=== PATIENT | male | born 1935 | race African-American/Black ===

== ENCOUNTER 2021-10-03 14:32 | Emergency (ER) | payer OTHER ==
[~2021-10-03] VITALS: Ht 172.7 cm; Wt 72.6 kg
--- NOTE | ~2021-10-03 | EMS ---
[address] [address] EMS Patient Care Report Name: RAYMON COOPER Room #: DEP AXEL Brownlee#: [id number] Admission: 10/03/21 Attend Phys: Discharge: 10/03/21 Date of : 35 Report #: [id number] THIS REPORT FOR: //name// Report Transmitted: 10/04/2021 06:22 EMS Care Summary [place], [place]/[facility] Incident [id number] @ 10/03/2021 13:44 Incident Location [address] [facility] Patient RAYMON WHITE Male, 86 Years 1935 Patient Address [address] [facility] [address] [id number] Patient History Hypertension (HTN), Patient Allergies No known allergies, Patient Medications Other, Chief Complaint ALTERED MENTAL Disposition Transported No Lights/[place] Dispatch Reason EMS Special Service Transported To [facility] Narrative [facility] 503 WAS DISPATCHED TO [facility] FOR TRANSFER OF A PATIENT TO [facility] FOR GERIATRIC MENTAL HEALTH ASSESSMENT PER PHYSICIANS ORDERS. PATIENT WAS FOUND SITTING IN BED AWAITING TRANSPORT. PATIENT REPORT AND [facility] [address] [place] [address] EMS Patient Care Report Name: RAYMON COOPER Room #: DEP Torrie#: [id number] Admission: 10/03/21 Attend Phys: Discharge: 10/03/21 Date of : 35 Report #: [id number] PAPERWORK WERE RECEIVED FROM HOSPITAL STAFF. PATIENT WAS TRANSFERRED FROM BED TO STRETCHER BY STANDING, PIVOTING AND BEING SEATED THEN SECURED WITH SEAT BELTS AND GUARD RAILS. VITALS WERE TAKEN IN ROUTE WITH NO CHANGE TO PATIENT. UPON ARRIVAL TO HOSPITAL PATIENT WAS TRANSFERRED FROM STRETCHER TO BED BY STANDING, PIVOTING AND BEING SEATED THEN SECURED WITH GUARD RAILS. PATIENT REPORT, PAPERWORK AND CARE WERE TRANSFERRED TO RECEIVING STAFF. Initial Vitals @14:13P: 71,R: 12,BP: 157/85,Pain: 0/10,GCS: 15,SpO2: 95,Revised Trauma: 12, @14:26P: 72,R: 12,BP: 127/85,Pain: 0/10,GCS: 15,SpO2: 94,Revised Trauma: 12, Assessments @14:11MENTAL:No Abnormalities,SKIN:No Abnormalities,HEENT:Head/Face: No Abnormalities,Eyes: No Abnormalities,Neck/Airway: No Abnormalities,LUNG SOUNDS:General: No Abnormalities,Left Upper: No Abnormalities,Right Upper: No Abnormalities,Left Lower: No Abnormalities,Right Lower: No Abnormalities,ABDOMEN:General: No Abnormalities,Left Upper: No Abnormalities,Right Upper: No Abnormalities,Left Lower: No Abnormalities,Right Lower: No Abnormalities,PELVIS//GI:No Abnormalities,EXTREMITIES:Left Arm: No Abnormalities,Right Arm: No Abnormalities,Left Leg: No Abnormalities,Right Leg: No Abnormalities,PULSE:NEURO:No Abnormalities, Impression Altered Mental Status Procedures @14:10 BLS Assessment Response: Unchanged @14:10 Stretcher Response: Unchanged Timeline 13:40,Call Received 13:40,Dispatch Notified 13:44,Dispatched 13:45,En Route 13:58,On Scene 14:09,At Patient 14:10,BLS Assessment,Response: Unchanged 14:10,Stretcher,Response: Unchanged 14:12,Depart Scene 14:13,BP: 157/85 M,PULSE: 71,RR: 12 R,SPO2: 95 Ox,ETCO2: ,BG: ,PAIN: 0,GCS: 15, 14:26,BP: 127/85 M,PULSE: 72,RR: 12 R,SPO2: 94 Ox,ETCO2: ,BG: ,PAIN: 0,GCS: 15, 14:28,At Destination 14:33,Call Closed Disclaimer [facility] [address] [place] [address] EMS Patient Care Report Name: RAYMON COOPER Room #: DEP [facility].R.#: [id number] Admission: 10/03/21 Attend Phys: Discharge: 10/03/21 Date of : 35 Report #: [id number] v1.1 Copyright 2021 [employer] This EMS Care Summary contains data elements from the applicable legal record (which may be displayed differently). It is designed to provide pertinent information for the following purposes: continuity of care, clinical quality, and state data reporting. The complete legal record is available to ED staff and administrators of the receiving hospital in [employer] Patient Tracker. All data is provided "as is."
[2021-10-03] MEDS ORDERED: ARICEPT10 M1 PO (14:43)
[2021-10-03] MEDS ORDERED: NORVASC10 MG PO (14:44)
[2021-10-03] MEDS ORDERED: SERTRALINE HCL100 MG PO (14:44)
[2021-10-04 00:32] VITALS: BP 146/69
== END 2021-10-03 21:51 ==
LOC: ER 14:32
PROVIDERS: Emergency Medicine
DX: R45.1 Restlessness and agitation (principal); Z20.822 Contact with and (suspected) exposure to COVID-19; F32.9 Major depressive disorder, single episode, unspecified; I10 Essential (primary) hypertension; Z79.899 Other long term (current) drug therapy

== ENCOUNTER 2021-10-03 16:36 | Inpatient (IN) | payer OTHER ==
[~2021-10-03] VITALS: Ht 170.2 cm; Wt 63.5 kg
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
[~2021-10-03 16:36] MED LIST: ARICEPT10 M1 PO; NORVASC10 MG PO; SERTRALINE HCL100 MG PO
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
[2021-10-04 06:12] LABS: CHOLESTEROL 130 mg/dL (<200); HDL CHOLESTEROL 53 mg/dL (>40); LDL CHOLESTEROL 66 mg/dL (<100); TC:HDL 2.5 Ratio (Not establshd); TRIGLYCERIDE 55 mg/dL (<150); VLDL 11 mg/dL (<40)
[2021-10-04 06:40] LABS: SERUM ASSESSMENT Clear
[2021-10-04 08:39] LABS: CALCIUM 9.1 mg/dL (8.5-10.1); CREATININE 0.8 mg/dL (0.7-1.3); POTASSIUM 4.2 mmol/L (3.5-5.1)
[2021-10-04 09:46] VITALS: BP 162/68
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
[2021-10-04 19:28] VITALS: BP 131/71
--- NOTE | 2021-10-04 23:38 | NUR ---
At onset of bioinformatics programmer pt was sitting in veronica chair in day room awake. This shift pt was alert and oriented to self. Pt appears to know he is in the hospital but he stated that someone was going to come pick him up and take him home. RN oriented pt to date, place and situation. Pt quickly restated that he was going to go home, but pt was calm, pleasant and cooperative. Affect was flat. Pt's speech is loud and at times difficult to understand. Pt was compliant with medication and vital signs. Pt took pills whole with water. Pt denied depression and anxiety. Pt endorsed pain in his left knee and received tylenol with his HS medications. Pt is a high fall risk. Fall precautions in place. Will continue to monitor.
[2021-10-05 07:08] LABS: GLYCOHEMOGLOBIN (HGB A1C) 5.7 % (4.8-5.6)
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
[2021-10-05 09:01] VITALS: BP 120/71
[2021-10-05 09:02] VITALS: BP 120/71
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
--- NOTE | 2021-10-05 15:54 | NUR ---
Welcome email sent to [email or web address] and [email or web address]
[2021-10-05 19:38] VITALS: BP 119/60
[2021-10-05 19:44] VITALS: BP 119/60
--- NOTE | 2021-10-05 21:18 | NUR ---
Continued pt care during this shift into evening medication pass. Client was sitting in chair in activity area during this time. Client present fussy but cooperative during this time, and was oriented to self and situation. Client stated that he still had depression and anxiety from being unable to go home, and voiced wanting to go home. Client asked his daughter on the phone when she could pick him as as he was "tired of being in this place" during his phone call. Client was redirected during this time, and once again educated that he would have a social studies department chair to work on discharge planning with. Client voiced some understanding at this time. Client denied any hallucinations at this time, stating, "I hope not baby" and also stated that he was "never suicidal or homicidal- I don't know why you're asking." Client denied pain during this time, though client's left knee still presented swollen. Client was asked if he was tired or had any lack of energy or over abundance of energy as thyroid hormone levels were low per lab results- client stated no. Client took all medications and tolerated his medication well. Client was then taken to bed. No further concerns at this time. Dayshift information passed on in shift report to receiving nurse.
[2021-10-06 10:04] VITALS: BP 130/59
--- NOTE | 2021-10-06 11:15 | NUR ---
Alert and orientated to person and place. [place]. Asking to be brought downstairs and then go home. Denies SI/HI. Pleasant, calm and cooperative. Breath sounds clear. Reg HR auscultated. Color pink with brisk capillary refill and palpable peripheral pulses. Incontinent of large amt yellow urine. Active bowel sounds over soft, rounded abdomen. Smear of stool. Redness between buttocks, cleaned and zpaste applied. States he has L knee pain with movement. Able bear wt, 2 person assist. Currently sitting in chair without s/o distress.
--- NOTE | 2021-10-06 16:23 | NUR ---
Phone call to Andrzej regarding transition to assisted living to memory care - Voice message
[2021-10-06 19:02] VITALS: BP 110/50
--- NOTE | 2021-10-06 21:20 | NUR ---
At onset of shift pt was sitting in veronica chair in day room. This shift pt was alert and oriented to self. Pt was calm, pleasant, and cooperative. Pt was compliant with vital signs and medications. Pt's speech was loud and pressured at times. Pt could not give the date or place. Pt made several statements about wanting to go home. Pt stated he would be ready to leave when we call the car. Pt was cooperative during an ultrasound of his throat. Pt denied depression and anxiety. Pt stated he likes his home and has "everything modern there." Pt is high fall risk. Fall precautions are in place. Will continue to monitor.
--- NOTE | 2021-10-07 10:04 | NUR ---
Alert and orientated to name only. Calm and pleasant. Denies SI/HI. Wants to leave, refused breakfast this AM. Took meds whole with liquid. Breath sounds clear. Reg HR auscultated. Color pink with brisk capillary refill and palpable peripheral pulses. Brief dry this AM. Active bowel sounds over soft, flat abdomen. Bears wt but is 2 person transfer. L knee with mild edema, voltarin ointment applied per order. Currently sitting quietly in day room.
[2021-10-07 11:03] VITALS: BP 145/70
[2021-10-07 19:02] VITALS: BP 103/40
[2021-10-07 19:30] VITALS: BP 109/51
--- NOTE | 2021-10-07 21:50 | NUR ---
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 This shift pt was alert and oriented only to self. Pt was compliant with vital signs and medications. Pt was observed talking to himself in day room and calling out to others at random. Speech was pressured and at times difficult to understand. Pt stated he was having a good day and said thank you to nurse. Pt only mentioned once wanting to go home. Denied anxiety and depression. No signs SI or HI. Pt is high fall risk. Fall precautions in place. Will continue to monitor.
[2021-10-08 08:40] VITALS: BP 113/62
[2021-10-08 09:12] VITALS: BP 113/62
--- NOTE | 2021-10-08 11:44 | NUR ---
Assumed pt care from overnight shift this am. Pt was in activity area sitting in gerichair and presented alert and oriented to self and situation. Pt was pleasant and cooperative at this time, and took all medications after pt education given on medications. Pt denied any depression and anxiety when asked. Pt also denied any hallucinations. Pt denied any si/hi at this time. Pt did voice pain in left knee. Applied difl. cream scheduled and prn tylenol given for this which provided partial pain relief. Lung sounds clear. Bowel sounds active. Last BM 10/07/21. No further concerns at this time.
--- NOTE | 2021-10-08 16:24 | NUR ---
Updates faxed to [facility]
[2021-10-08 19:43] VITALS: BP 126/56
[2021-10-08 19:50] VITALS: BP 126/56
--- NOTE | 2021-10-08 20:10 | NUR ---
Assumed care on 10/08/21 @ 1900, seated in a veronica chair reclined and covered up with eyes closed, opens eyes to voice and cooperated with assessment. HRRR, Lungs CTA aBD Nx4Q over a soft round abdomen. Reports back pain and knee pain. Chair alarm in place, will continue to monitor for comfort and safety as per unit protocol. High fall risk, chair alarm in place and fall risk protocol in place.
[2021-10-09 09:24] VITALS: BP 125/62
[2021-10-09 09:37] VITALS: BP 125/62
--- NOTE | 2021-10-09 12:49 | NUR ---
RESUMMED CARE FROM OVERNIGHT SHIFT THIS AM, PATIENT ALERT ORIENTED TO SELF AND SITUATION. PATIENT SITTING IN DAY ROOM IN ZINA CHAIR QUIET; PATIENT ATE BREAKFAST. PATIENT TOOK MEDICATION WITHOUT INCIDENCE PATIENT DENIES SI/HI/AH/VH AT PRESENT. PATIENTS ABDOMEN SOFT BOWEL SOUNDS PRESENT PATIENTS LUNGS CLEAR. PATIENT WILL TALK WITH YOU IF YOU ENGAGE HIM, PATIENT HAS NOT DISPLAYED ANY BEHAVIORS. PATIENT WOUND ON BUTTOCKS LOOK GOOD I PUT THE PATIENT ON A ROHO CUSHION. WILL CONTINUE TO MONITOR PATIENT FOR SAFETY AND BEHAVIORS.
--- NOTE | 2021-10-09 16:35 | NUR ---
Family meeting - EMIL Beckwith, Shanel Flannery and Luh Chávez. Discussed medications. Patient is currently on a medication for thyroid. Daughters requested patient be taken off medication due to the impact on patient's health. Discussed discharge. Shanel and Luh would like patient discharged as soon as possible. Patient would have to return to assisted living at [facility] as is on memory care and the two needs to be .
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
[2021-10-09 19:55] VITALS: BP 119/53
[2021-10-09 19:57] VITALS: BP 119/53
[2021-10-10 09:10] VITALS: BP 129/74
--- NOTE | 2021-10-10 10:44 | NUR ---
RT Progress Note- Jorge has been present in the milieu and recreation therapy groups throughout his first week of admission. His participation is variable as he displays poor attention to task. BEAD MAKER will continue to encourage participation and focus.
[2021-10-10 12:12] VITALS: BP 129/74
--- NOTE | 2021-10-10 12:18 | NUR ---
RESUMMED CARE; PATIENT LOCATED IN ZINA-CHAIR IN [place] ALONG SIDE PEERS; NO S/O OF ACUTE DISTRESS NOTED; PATIENT DENIES SI/HI/AVH-PRESENT DELUSIONS; PATIENT DENIES HAVING ANY PAIN AT THIS TIME; DENIED SOB-CP; PRESENTS DCAU-[id number]-IMPULSIVE AT TIMES; PATIENT CAN BE DIFFICULT TO REORIENT AT TIMES; PIVOT TRANSFERS WITH GAITBELT-W/C; BOTTOM AREA IS RED WITH BREAKDOWN NOTED-ROHO CUSSION UNDER [id number] CREAM; VSS ON ROOMAIR; HIGH-FALL PRECAUTIONS ARE IN PLACE; WILL CONTINUE TO MONITIOR PER [facility] PROTOCOL;
--- NOTE | 2021-10-10 16:32 | NUR ---
Message received from Lenore elizondo [facility] stating they had not received any updates. Message further reported to contact Huma, Valve Machine Operator.
[2021-10-10 19:20] VITALS: BP 116/66
--- NOTE | 2021-10-10 19:54 | NUR ---
Assumed care on 10/10/21 @ 1900, seated in the day room in a veronica chair. Cooperated with assesssment, HRRR, Breath sounds CTA abilat, cough noted. ABD N x 4Q, Compliant with medication administration, insisted on holding the meds in his hand and then dropped in his lap, insisted on holding the cup of water by himself and then spilled the water in his lap. Tylenol 650 provided for 6/10 back and knee pain, voltaren gel provided topical for pain. A&Ox2, high fall risk protocols in place, chair alarm in veronica chair.
[2021-10-10 19:55] VITALS: BP 116/66
--- NOTE | 2021-10-11 08:18 | NUR ---
Phone call to Luh Chávez, daughter. Luh stated that she was present on the phone when Huma spoke to the patient's nurse, Gris. Luh reported that Huma should contact the this morning.
[2021-10-11 08:30] VITALS: BP 138/78
[2021-10-11] MEDS ORDERED: PROPRANOLOL 20M20 M1 PO (08:44)
[2021-10-11] MEDS ORDERED: OLANZAPINE2.5 MG PO (08:45)
[2021-10-11] MEDS ORDERED: OXTELLAR XR150 MG PO (08:45)
[2021-10-11] MEDS ORDERED: ARTHRITIS PAIN100 GM TOP (08:45)
[2021-10-11] MEDS ORDERED: VITAMIN B-12500 MCG PO (08:46)
--- NOTE | 2021-10-11 09:00 | NUR ---
Discharge summary faxed to [facility]
--- NOTE | 2021-10-11 11:13 | NUR ---
Assummed pt care from overnight shift this am. Pt was in room getting ready with the assistance of staff as pt was discharging at 9am this morning. Pt presented polite and confused at this time, and was excited to see his daughter, Shanel. Consent for discharge obtained from both Shanel and Sonia HAN's on file for pt to discharge. Pt given all morning medication and tolerated well at this time. Pt oriented to situation and self only, but denied pain at this time. No suicidal or homicidal thoughts reported, and [place] scored 0 per pt report, with pt denying all psych issues, and saying, "praise God, I don't have any depression- I wouldn't kill myself no way." Report called to [facility]. Paper scripts, reports on pt, and labs, as well as discharge paperwork sent to facility. Pt discharged with daughter Shanel in van @919am, with staff walking down with pt and ensuring pt safety as pt was discharged in wheelchair to daughter's car and safely secured. No further concenrs at time of discharge.
== END 2021-10-11 09:19 | DRG 57 ==
LOC: SBH
PROVIDERS: Nurse Practitioner Psychiatric/Mental Health; ADMIT Psychiatry & Neurology Psychiatry; ATTEND Psychiatry & Neurology Psychiatry
DX: G30.9 Alzheimer's disease, unspecified (principal); F02.81 Dementia in other diseases classified elsewhere, unspecified severity, with behavioral disturbance; F01.51 Vascular dementia, unspecified severity, with behavioral disturbance; Z20.822 Contact with and (suspected) exposure to COVID-19; I10 Essential (primary) hypertension; M19.90 Unspecified osteoarthritis, unspecified site; Z66 Do not resuscitate; E05.90 Thyrotoxicosis, unspecified without thyrotoxic crisis or storm
CPT/HCPCS: 10880